=== PATIENT | female | born 1955 | race Caucasian/White ===

== ENCOUNTER → 2022-02-16 | Outpatient (CLI) | payer MEDICARE, OTHER ==
[~2022-02-16] MED LIST: ACTOS15 MG PO; FISH OIL 1,0001 EAC2 PO; FOLIC ACID1 MG PO; HYDROCHLOROTH12.5 MG PO; METFORMIN HCL500 M2 PO; METHOTREXATE2.5 MG PO; RAMIPRIL5 MG PO; REGADENOSON 0.4 MG/5 ML SYR IV ONE; SYNTHROID88 MCG PO; ULTRAM50 MG PO; WOMEN'S DAILY1 EAC2 PO
== END ==
LOC: NM 07:08
PROVIDERS: ATTEND Internal Medicine Cardiovascular Disease
DX: Z01.818 Encounter for other preprocedural examination (principal); R06.02 Shortness of breath
CPT/HCPCS: 78451; 93017; A9502; J2785